=== PATIENT | male | born 1985 | race Caucasian/White ===

== ENCOUNTER 2022-08-24 16:52 | Emergency (ER) | payer BC, OTHER ==
--- NOTE | 2022-08-24 17:37 | ED ---
General Adult HPI - General Source: patient, RN notes reviewed Mode of arrival: ambulatory Limitations: no limitations <Pia Cha - Last Filed: 08/24/22 17:35> - History of Present Illness -: week(s) (2) Location: right, upper extremity Severity scale (1-10): 2 Quality: aching Consistency: intermittent Improves with: immobilization Worsens with: movement (or lifting) Associated Symptoms: denies other symptoms Treatments Prior to Arrival: none <Sha Arenas - Last Filed: 08/24/22 23:03> - General Chief complaint: Extremity Injury, Upper Stated complaint: right shoulder pain Time Seen by Provider: 08/24/22 17:39 - History of Present Illness Initial comments: 37-year-old male presents to the emergency department chief complaint right shoulder pain. Patient states that his been going on for about 2-1/2 weeks. He states that at that time he was arrested and when he woke up in senior living he started having shoulder pain. He doesn't recall any injury in particular at that time. He states he's been taking Motrin for the pain and occasionally using a heating pad which seems to help. (Pia Cha) Nontoxic-appearing 37-year-old male presents with complaints of right shoulder pain for the past couple of weeks. He states he honestly does not remember if he had an injury. States that pain is worse at work while lifting items over his head causing increased pain in the shoulder. Denies any previous trauma to this area. (Sha Arenas) - Related Data Allergies Allergy/AdvReac Type Severity Reaction Status Date / Time cat dander Allergy Unknown Verified 08/24/22 17:35 cefaclor [From Ceclor] Allergy Rash/Hives Verified 08/24/22 17:35 dog dander Allergy Unknown Verified 08/24/22 17:35 grass pollen Allergy Unknown Verified 08/24/22 17:35 Review of Systems ROS Other: All systems not noted in ROS Statement are negative. <Pia Cha - Last Filed: 08/24/22 17:35> ROS Other: All systems not noted in ROS Statement are negative. <Sha Arenas - Last Filed: 08/24/22 23:03> ROS Statement: Those systems with pertinent positive or pertinent negative responses have been documented in the HPI. Past Medical History Past Medical History: No Reported History History of Any Multi-Drug Resistant Organisms: None Reported Additional Past Surgical History / Comment(s): skin graft- ear Past Psychological History: No Psychological Hx Reported Smoking Status: Never smoker Past Alcohol Use History: Rare Past Drug Use History: None Reported <Pia Cha - Last Filed: 08/24/22 17:35> General Exam Limitations: no limitations <Pia Cha - Last Filed: 08/24/22 17:35> General appearance: alert, in no apparent distress Head exam: Present: atraumatic Eye exam: Present: normal appearance. Absent: scleral icterus, conjunctival injection, periorbital swelling Neck exam: Present: full ROM. Absent: tenderness, meningismus Respiratory exam: Absent: respiratory distress, accessory muscle use Cardiovascular Exam: Present: regular rate Extremities exam: Present: normal inspection, full ROM, normal capillary refill Right Shoulder Exam: Present: full ROM, tenderness, other (Negative Apley scratch test). Absent: swelling, abrasion, laceration, ecchymosis, deformity, crepitus, dislocation, erythema, tenderness over AC joint Upper Arm exam: Present: full ROM. Absent: tenderness Elbow exam: Present: full ROM. Absent: tenderness Forearm Wrist exam: Present: full ROM. Absent: tenderness Hand Wrist exam: Present: full ROM. Absent: tenderness Neurosensory exam: Present: radial nerve intact, ulnar nerve intact, median nerve intact Vascular: Present: normal capillary refill. Absent: vascular compromise Back exam: Present: full ROM. Absent: tenderness, paraspinal tenderness, vertebral tenderness, rash noted Neurological exam: Present: alert, oriented X3 Psychiatric exam: Present: normal affect, normal mood Skin exam: Present: warm, dry, normal color. Absent: cyanosis, diaphoretic, petechiae, pallor <Sha Arenas - Last Filed: 08/24/22 23:03> Course Vital Signs 08/24/22 08/24/22 17:31 19:25 Temperature 97.5 F L 97.8 F Pulse Rate 77 72 Respiratory 16 18 Rate Blood Pressure 131/82 124/87 O2 Sat by Pulse 97 97 Oximetry Medical Decision Making <hSa Arenas - Last Filed: 08/24/22 23:03> - Medical Decision Making Was pt. sent in by a medical professional or institution ([facility], [employer], urgent care, hospital, or [facility]...) When possible be specific @ -No Did you speak to anyone other than the patient for history (EMS, parent, family, police, friend...)? What history was obtained from this source @ -No Did you review nursing and triage notes (agree or disagree)? Why? @ -I reviewed and agree with nursing and triage notes Were old charts reviewed (outside hosp., previous admission, EMS record, old EKG, old radiological studies, urgent care reports/EKG's, [facility] records)? Report findings @ -No old charts were reviewed Differential Diagnosis (chest pain, altered mental status, abdominal pain women, abdominal pain men, vaginal bleeding, weakness, fever, dyspnea, syncope, headache, dizziness, GI bleed, back pain, seizure, CVA, palpatations, mental health, musculoskeletal)? @ -Shoulder dislocation, fracture, strain EKG interpreted by me (3pts min.). @ -n/a X-rays interpreted by me (1pt min.). @ -yes X-ray of the right shoulder interpreted by me shows no evidence of fracture or dislocation. CT interpreted by me (1pt min.). @ -None done U/S interpreted by me (1pt. min.). @ -None done What testing was considered but not performed or refused? (CT, X-rays, U/S, labs)? Why? @ -None What meds were considered but not given or refused? Why? @ -Patient offered Tylenol Motrin and declined Did you discuss the management of the patient with other professionals (professionals i.e. [facility], [employer], lab, RT, psych nurse, social worker aide, outdoor studies professor, teacher, bsa officer, nurse case manager)? Give summary @ -No Was smoking cessation discussed for >3mins.? @ -No Was critical care preformed (if so, how long)? @ -No Were there social determinants of health that impacted care today? How? (Homelessness, low income, unemployed, alcoholism, drug addiction, transportation, low edu. Level, literacy, decrease access to med. care, senior living, rehab)? @ -No Was there de-escalation of care discussed even if they declined (Discuss DNR or withdrawal of care, Hospice)? DNR status @ -No What co-morbidities impacted this encounter? (DM, HTN, Smoking, COPD, CAD, Cancer, CVA, ARF, Chemo, Hep., AIDS, mental health diagnosis, sleep apnea, morbid obesity)? @ -None Was patient admitted / discharged? Hospital course, mention meds given and route, prescriptions, significant lab abnormalities, going to OR and other pertinent info. @ -discharged 37-year-old male presents with complaints of right shoulder pain for the past couple of weeks. Pain is worse while lifting items over his head. On physical exam patient has full range of motion. No swelling or erythema. Capillary refill less than 2 seconds Patient offered pain medication and declined. X-ray of the right shoulder interpreted by me shows no evidence of fracture or dislocation. Radiologist interpretation is negative for acute fracture Patient was discharged home to follow-up with his primary care doctor and/or orthopedics. Rest ice and Tylenol Motrin for pain. Patient is agreeable to this plan of care. Case discussed with [facility]. Undiagnosed new problem with uncertain prognosis? @ -No Drug Therapy requiring intensive monitoring for toxicity (Heparin, Nitro, Insulin, Cardizem)? @ -No Were any procedures done? @ -No Diagnosis/symptom? @ -Internal derangement right shoulder Acute, or Chronic, or Acute on Chronic? @ -Acute Uncomplicated (without systemic symptoms) or Complicated (systemic symptoms)? @ -Uncomplicated Side effects of treatment? @ -No Exacerbation, Progression, or Severe Exacerbation? @ -No Poses a threat to life or bodily function? How? (Chest pain, [place], [place], pneumonia, PE, COPD, DKA, ARF, appy, cholecystitis, CVA, Diverticulitis, Homicidal, Suicidal, threat to staff... and all critical care pts) @ -No (Sha Arenas) Disposition <Pia Cha - Last Filed: 08/24/22 17:35> Is patient prescribed a controlled substance at d/c from ED?: No Time of Disposition: 19:16 <Sha Arenas - Last Filed: 08/24/22 23:03> Clinical Impression: Internal derangement of right shoulder Disposition: HOME SELF-CARE Condition: Good Additional Instructions: Rest and take Tylenol and or Motrin as needed for any pain or discomfort. Do not do activities that increase pain. Follow-up with orthopedics for evaluation. Referrals: None,Stated [Primary Care Provider] - 1-2 days Sami Mayorga DO [Doctor of Osteopathic Medicine] - 1-2 days
--- NOTE | 2022-08-24 18:58 | XR ---
EXAMINATION TYPE: XR shoulder complete RT DATE OF EXAM: 08/24/2022 6:10 PM INDICATION: Patient age:Male; 37 years old; Reason for study: pain; COMPARISON: 10/25/2012 TECHNIQUE: The right shoulder was examined in AP, internally rotated and scapular Y projections. FINDINGS: No evidence of acute osseous pathology, joint dislocation, or soft tissue swelling. The remaining por tions of the visualized chest are unremarkable. IMPRESSION: No acute osseous pathology.
[2022-08-24 19:28] VITALS: BP 124/87; PULSE 72; RESP 18; TEMP 97.8
== END 2022-08-24 19:28 | disposition home or self-care (01) ==
LOC: EC 16:52
DX: M24.9 Joint derangement, unspecified (principal); Z88.1 Allergy status to other antibiotic agents; Z88.8 Allergy status to other drugs, medicaments and biological substances
CPT/HCPCS: 99283